=== PATIENT | male | born 1995 | race Caucasian/White ===

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

== ENCOUNTER 2022-11-06 02:08 | Emergency (ER) | payer MEDICAID, OTHER ==
[~2022-11-06] VITALS: Ht 185.4 cm; Wt 80.0 kg
[2022-11-06] MEDS ORDERED: ONDANSETRON ODT 4 MG TAB PO ONE (02:45)
[2022-11-06] MEDS ORDERED: HYDROmorphone HCL 2 MG/ML VL/or syr IM ONE (02:45)
[2022-11-06] MEDS ORDERED: PROPOFOL 10 MG/ML 20 ML IV ONE (03:45)
[2022-11-06] MEDS ORDERED: KETAMINE 50mg/ML 10ml Vial (500mg/10ml) IV ONE (03:45)
[2022-11-06] MEDS ORDERED: PROPOFOL 100 ML IV ONE (04:29)
[2022-11-06] MEDS ORDERED: IBUP800T26 PO (05:53)
[2022-11-06 06:00] VITALS: BP 124/78
== END 2022-11-06 05:55 | disposition home or self-care (01) ==
LOC: ER 02:08
DX: S43.005A Unspecified dislocation of left shoulder joint, initial encounter (principal); X58.XXXA Exposure to other specified factors, initial encounter; Y93.89 Activity, other specified; Y92.89 Other specified places as the place of occurrence of the external cause; Y99.8 Other external cause status
CPT/HCPCS: 23650; 73030; 96372; 99152; 99285; J1170; J2704; Q0162; 96374; 96375

== ENCOUNTER 2023-06-22 20:42 | Emergency (ER) | payer OTHER ==
[~2023-06-22] VITALS: Ht 185.4 cm; Wt 79.0 kg
[2023-06-22 20:42] VITALS: BP 138/85; PULSE 103; RESP 20; O2SAT 97
[~2023-06-22 20:42] MED LIST: IBUP-1455 PO
== END 2023-06-23 04:00 | disposition left against medical advice (07) ==
LOC: ER 20:42
DX: M79.604 Pain in right leg (principal); Z53.21 Procedure and treatment not carried out due to patient leaving prior to being seen by health care provider
CPT/HCPCS: 73562